=== PATIENT | male | born 1955 | race Caucasian/White ===

== ENCOUNTER 2020-10-29 09:18 | Day surgery (SDC) | payer OTHER ==
[~2020-10-29] VITALS: Ht 172.7 cm; Wt 77.6 kg
[2020-10-29] MEDS ORDERED: LATANOPROST2.5 M2 BOTHEYES (09:33)
--- NOTE | 2020-10-29 09:40 | NUR ---
10/29/20 0940 Candi Chavez CALL LIGHT WITHIN REACH.
[2021-02-24] MEDS ORDERED: ASPI325EC PO (15:10)
[2021-02-24] MEDS ORDERED: Crestor40 MG PO (15:11)
== END 2020-10-29 11:25 | disposition home or self-care (01) ==
LOC: ORSCSDS 09:18
PROVIDERS: Ophthalmology
PROC: 08RJ3JZ Replacement of Right Lens with Synthetic Substitute, Percutaneous Approach (ICD-10-PCS; principal; 2020-10-29 10:30)
DX: H25.11 Age-related nuclear cataract, right eye (principal); Z79.899 Other long term (current) drug therapy
CPT/HCPCS: J2001; J2250; J3010; J3301; J7040; V2632

== ENCOUNTER 2021-03-03 13:11 | Day surgery (SDC) | payer OTHER ==
[~2021-03-03] VITALS: Ht 172.7 cm; Wt 74.9 kg
[~2021-03-03 13:11] MED LIST: ASPI325EC PO; Crestor40 MG PO; LATANOPROST2.5 M2 BOTHEYES
--- NOTE | 2021-03-03 14:02 | NUR ---
03/03/21 1402 Anne Stahl 1st attempted in right forearm missed by TARSHA
== END 2021-03-03 15:45 | disposition home or self-care (01) ==
LOC: ORSCSDS 13:11
PROVIDERS: Student in an Organized Health Care Education/Training Program
PROC: 0DBP8ZX Excision of Rectum, Via Natural or Artificial Opening Endoscopic, Diagnostic (ICD-10-PCS; principal; 2021-03-03 14:30)
PROC: 0DBL8ZX Excision of Transverse Colon, Via Natural or Artificial Opening Endoscopic, Diagnostic (ICD-10-PCS; principal; 2021-03-03 14:30)
PROC: 0DBM8ZX Excision of Descending Colon, Via Natural or Artificial Opening Endoscopic, Diagnostic (ICD-10-PCS; principal; 2021-03-03 14:30)
DX: Z12.11 Encounter for screening for malignant neoplasm of colon (principal); D12.3 Benign neoplasm of transverse colon; D12.4 Benign neoplasm of descending colon; K62.1 Rectal polyp; K57.30 Diverticulosis of large intestine without perforation or abscess without bleeding; K64.8 Other hemorrhoids; E78.5 Hyperlipidemia, unspecified; Z79.82 Long term (current) use of aspirin; Z79.899 Other long term (current) drug therapy
CPT/HCPCS: 88305; J2405; J2704; J7120